=== PATIENT | female | born 1945 | race Caucasian/White ===

== ENCOUNTER 2017-11-18 06:58 | Emergency (ER) | payer MEDICARE, OTHER ==
[2017-11-18 07:14] VITALS: BP 154/78
[2017-11-18] MEDS ORDERED: Doxycycline 100 MG Cap PO ONE (07:28)
--- NOTE | 2017-11-18 07:29 | EDM.PDOC ---
ED HPI GENERAL MEDICAL PROBLEM - General Chief Complaint: Bite:Animal, Insect Stated Complaint: TICK BITE - BACK Time Seen by Provider: 11/18/17 07:20 Source of Information: Reports: Patient History Limitations: Reports: No Limitations - History of Present Illness INITIAL COMMENTS - FREE TEXT/NARRATIVE: 72-year-old female had a tick attached to her back, she managed to get it to let go and while he was crawling across her back she caught it and brought it in. It is alive, appears to be a little large for a deer tick and is not engorged with blood. She does have an erythematous round irritated area on her mid back however. No fevers or chills. Location: Reports: Back Severity: Mild Associated Symptoms: Reports: No Other Symptoms - Related Data Allergies Allergy/AdvReac Type Severity Reaction Status Date / Time No Known Allergies Allergy Verified 11/18/17 07:15 Home Meds: Home Meds Calcium Carbonate/Vitamin D3 [Calcium 600 + Vit D Tablet] 1 tab PO DAILY [History] Cholecalciferol (Vitamin D3) [Vitamin D3] 1 tab PO DAILY 04/18/14 [History] Ibuprofen [Advil] 400 mg PO DAILY 04/18/14 [History] Levothyroxine Sodium [Synthroid] 175 mcg PO DAILY 04/18/14 [History] Zolpidem Tartrate 10 mg PO BEDTIME 04/18/14 [History] atorvaSTATin [Lipitor] 20 mg PO DAILY 04/18/14 [History] Hydrochlorothiazide 12.5 mg PO DAILY 02/19/17 [History] Multivit-Min/FA/Lycopene/Lut [Senior Tabs] 1 tab PO DAILY 02/19/17 [History] Psyllium [Metamucil] 1 tab PO DAILY 02/19/17 [History] Past Medical History Cardiovascular History: Reports: High Cholesterol, Hypertension Other Gastrointestinal History: hernia Genitourinary History: Reports: Urinary Incontinence 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: Musculoskeletal History: Reports: Other (See Below) Other Musculoskeletal History: right hip pain Endocrine/Metabolic History: Reports: Hypothyroidism - Past Surgical History GI Surgical History: Reports: Hernia, Abdominal Musculoskeletal Surgical History: Reports: Hip Replacement Other Musculoskeletal Surgeries/Procedures:: RIGHT Social & Family History - Tobacco Use Smoking Status *Q: Never Smoker - Caffeine Use Caffeine Use: Reports: Coffee - Recreational Drug Use Recreational Drug Use: No ED ROS GENERAL - Review of Systems Review Of Systems: See Below Constitutional: Denies: Fever, Chills Respiratory: Denies: Shortness of Breath GI/Abdominal: Denies: Nausea, Vomiting Musculoskeletal: Denies: Joint Pain ED EXAM, ANIMAL BITE - Physical Exam Exam: See Below Exam Limited By: No Limitations General Appearance: Alert, No Apparent Distress Respiratory/Chest: No Respiratory Distress Skin Exam: Other (Patient has a 2 cm wide macular erythematous area on the mid back which was the likely area of contact with the tick) Course - Vital Signs Last Recorded V/S: Last Vital Signs Temp 97.2 F 11/18/17 07:15 Pulse 69 11/18/17 07:15 Resp 17 11/18/17 07:15 BP 154/78 H 11/18/17 07:15 Pulse Ox 95 11/18/17 07:15 - Orders/Labs/Meds Meds: Medications Discontinued Medications Generic Name Dose Route Start Last Admin Trade Name Freq PRN Reason Stop Dose Admin Doxycycline Hyclate 200 mg 11/18/17 07:28 11/18/17 07:36 Vibramycin PO 11/18/17 07:29 200 mg ONETIME ONE Administration - Re-Assessments/Exams Free Text/Narrative Re-Assessment/Exam: 11/18/17 07:28 Patient was given one 200 mg dose of doxycycline by mouth and reassured that no further treatment is needed. She can recheck in the future if she feels she is developing symptoms. Departure - Departure Time of Disposition: 07:31 Disposition: Home, Self-Care 01 Condition: Good Clinical Impression: Tick bite of back Qualifiers: Encounter type: initial encounter Qualified Code(s): S30.860A - Insect bite ( nonvenomous) of lower back and pelvis, initial encounter - Discharge Information Instructions: Tick Bite Information, Adult, [id number] Referrals: Columba Ash PA [Primary Care Provider] - Forms: ED Department Discharge Care Plan Goals: Keep the bite area clean while healing, and recheck in the future if concerns such as fever or joint pains.
== END 2017-11-18 07:38 | disposition home or self-care (01) ==
LOC: JP.ED 06:58
DX: S30.860A Insect bite (nonvenomous) of lower back and pelvis, initial encounter (principal); I10 Essential (primary) hypertension; Z79.899 Other long term (current) drug therapy; W57.XXXA Bitten or stung by nonvenomous insect and other nonvenomous arthropods, initial encounter
CPT/HCPCS: 99283; A9270

== ENCOUNTER 2021-03-20 14:55 | Emergency (ER) | payer MEDICARE, OTHER ==
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
[2021-03-20] MEDS ORDERED: Aspirin 81 MG Tab.Chew PO ONE (17:33)
[2021-03-20] MEDS ORDERED: Ticagrelor 90 MG Tab PO ONE (17:34)
[2021-03-20] MEDS ORDERED: Heparin Sodium 5,000 Units/ML Vial IVPUSH ONE (18:02)
[2021-03-20 18:09] VITALS: PULSE 87
[2021-03-20] MEDS ORDERED: Heparin Sodium/D5W 25,000 UNITS/500 ML BAG IV SCH (18:15)
[2021-03-20] MEDS ORDERED: Iopamidol 755 Mg/ML 100 ML Bottle IV SCH (19:00)
[2021-03-20] MEDS ORDERED: Sodium Chloride 0.9% 100 ML IV SCH (19:00)
--- NOTE | 2021-03-20 20:08 | CRLCT ---
For Patients: As a result of the Century Cures Act, medical imaging exams and procedure reports are released immediately into your electronic medical record. You may view this report before your referring provider. If you have questions, please contact your health care provider. Indication: Shortness of breath. Elevated D-dimer. Technique: Multiple contiguous axial images were obtained from the thoracic inlet through the upper abdomen after the intravenous administration of 100 cc Isovue 370. This exam is tailored for the evaluation of the pulmonary arteries. Please note that all CT scans at this facility use dose modulation, iterative reconstruction, and/or weight-based dosing when appropriate to reduce radiation dose to as low as reasonably achievable. Comparison: None Findings: A large pulmonary embolism is aided filling the right main pulmonary artery extending into the pulmonary artery for the right lower lobe, right middle lobe, and right upper lobe. No pulmonary embolism is identified on the left. The heart is normal in size. There is no evidence of right heart strain. A large hiatal hernia is identified. The visualized portions of the liver, spleen, gallbladder, adrenals, and kidneys are normal. Degenerative changes of the spine are identified. No lytic or blastic lesions are identified. The lungs are clear. No infiltrate, pleural effusion, or pneumothorax is identified. Impression: Large PE filling the right main pulmonary artery and many of the branches. No evidence of right heart strain. Large hiatal hernia. These findings were called to Vernon Lu at the time of this dictation. Please note that all CT scans at this facility use dose modulation, iterative reconstruction, and/or weight-based dosing when appropriate to reduce radiation dose to as low as reasonably achievable. Dictated by Noreen Matos MD @ 03/20/2021 8:08:09 PM (Electronically Signed)
[2021-03-20 21:30] VITALS: BP 166/100
[2021-03-20] MEDS ORDERED: Acetaminophen 325 MG Tab PO ONE (21:43)
--- NOTE | 2021-03-21 11:58 | CR ---
CHEST: 2 view CLINICAL HISTORY:Dyspnea COMPARISON:None FINDINGS: The heart is enlarged. Pulmonary vascular is normal. There are atherosclerotic changes in the aorta. There is a very large hiatal hernia. Impression: Very large hiatal hernia. No infiltrates are seen
== END 2021-03-20 21:55 ==
LOC: JP.ED 14:55
DX: I26.99 Other pulmonary embolism without acute cor pulmonale (principal); I10 Essential (primary) hypertension; E03.9 Hypothyroidism, unspecified; E78.00 Pure hypercholesterolemia, unspecified; Z79.899 Other long term (current) drug therapy; Z20.822 Contact with and (suspected) exposure to COVID-19
CPT/HCPCS: 36415; 71046; 71275; 80048; 83880; 84484; 85025; 85379; 85610; 85730; 93005; 96365; 96366; 99285; A9270; J1644; Q9967; U0002

== ENCOUNTER 2024-12-16 13:18 | Emergency (ER) | payer MEDICARE, OTHER ==
[2024-12-16 14:19] VITALS: BP 146/74; PULSE 64
== END 2024-12-16 15:11 | disposition home or self-care (01) ==
LOC: JP.ED 13:18
DX: K44.9 Diaphragmatic hernia without obstruction or gangrene (principal); I10 Essential (primary) hypertension; E78.00 Pure hypercholesterolemia, unspecified; E03.9 Hypothyroidism, unspecified; Z79.82 Long term (current) use of aspirin; Z79.01 Long term (current) use of anticoagulants; Z79.890 Hormone replacement therapy; Z79.899 Other long term (current) drug therapy
CPT/HCPCS: 99282; 99283

== ENCOUNTER 2025-01-09 11:06 | Emergency (ER) | payer MEDICARE, OTHER ==
[2025-01-09 12:00] LABS: BASOPHILS ABSOLUTE AUTO 0.02 K/uL (0.00-0.10); BASOPHILS PERCENT AUTO 0.2 % (0.1-1.3); EOSINOPHILS ABSOLUTE AUTO 0.03 K/uL (0.00-0.40); EOSINOPHILS PERCENT AUTO 0.4 % (0.0-5.4); IMMATURE GRAN ABSOLUTE AUTO 0.03 K/uL (0.00-0.23); IMMATURE GRAN PERCENT AUTO 0.4 % (0.0-0.7); LYMPHOCYTES ABSOLUTE AUTO 0.83 K/uL (0.8-3.3); LYMPHOCYTES PERCENT AUTO 10.1 % (11.4-47.7); MONOCYTES ABSOLUTE AUTO 0.58 K/uL (0.20-0.90); MONOCYTES PERCENT AUTO 7.0 % (3.3-12.6); NEUTROPHILS ABSOLUTE AUTO 6.76 K/uL (1.0-7.6); NEUTROPHILS PERCENT AUTO 81.9 % (40.0-78.1); PLATELET COUNT,PLT 178 K/uL (130-375); RED BLOOD CELL COUNT 3.88 M/uL (3.77-5.24); WHITE BLOOD CELL COUNT,WBC 8.3 K/uL (3.2-11.0)
[2025-01-09 12:09] LABS: A/G RATIO 0.9 (1.2-2.2); ALANINE AMINOTRANSFERASE,ALT 16 U/L (12-78); ASPARTATE AMNIOTRANSFERASE,AST 17 U/L (15-37); BILIRUBIN TOTAL 0.8 mg/dL (0.2-1.0); BLOOD UREA NITROGEN,BUN 23 mg/dL (7-18); CARBON DIOXIDE,CO2 29 mmol/L (21-32); CHLORIDE,CL 105 mmol/L (100-108); CREATININE 0.9 mg/dL (0.6-1.0); EST CRCL DRUG DOSING (CG) 34.62 mL/min; ESTIMATED GFR 64 mL/min (>60); GLUCOSE RANDOM 121 mg/dL (74-106); POTASSIUM,K 3.5 mmol/L (3.6-5.2); PROTEIN TOTAL,TP 7.2 g/dL (6.4-8.2); SODIUM,NA 142 mmol/L (140-148)
[2025-01-09] MEDS: Iopamidol 612 MG/ML 100 ML Bottle IV PRN (13:33)
[2025-01-09] MEDS: Sodium Chloride 0.9% 10 ML Syringe FLUSH ONE (13:33)
[2025-01-09] MEDS: Furosemide 40 MG/4 ML VIAL IVPUSH ONE (15:34)
[2025-01-09 15:36] VITALS: BP 134/69; PULSE 65
[2025-01-09 16:30] LABS: GLUCOSE,URINE 250 mg/dL (NEGATIVE); OCCULT BLOOD,URINE SMALL (NEGATIVE)
[2025-01-09 16:36] LABS: APPEARANCE,URINE SLIGHTLY CLOUDY (CLEAR); EPITHELIAL CELLS,URINE RARE
== END 2025-01-09 16:35 | disposition home or self-care (01) ==
LOC: JP.ED 11:06
DX: I11.0 Hypertensive heart disease with heart failure (principal); I50.9 Heart failure, unspecified; E03.9 Hypothyroidism, unspecified; E78.00 Pure hypercholesterolemia, unspecified; Z79.01 Long term (current) use of anticoagulants; Z79.82 Long term (current) use of aspirin; Z79.890 Hormone replacement therapy; Z79.899 Other long term (current) drug therapy
CPT/HCPCS: 36415; 71045; 71260; 74177; 80053; 81001; 84443; 85025; 86140; 86618; 96374; 99284; 99285; J1938; Q9967